=== PATIENT | female | born 1995 ===

== ENCOUNTER 2021-01-05 16:21 | Outpatient (REF) | payer OTHER, SELFPAY ==
--- NOTE | 2021-01-05 14:30 | PAPFT_PTH ---
PATIENT: Lenora Enrique LOC: [facility] U#:[id number] AGE/SX: 25/F ROOM: RE01/05/[address]: Anne-Marie Monroy : 1995 BED: DIS: 01/05/2021 SPEC #: [id number] RECD: 01/06/21 12:48 STATUS: RADHA REPedrito #: [id number] ARIAN: 01/05/21 14:[address]: Anne-Marie Monroy DEPT: [facility] Cytology RECD BY: Sallie Green Tissues: 1 - CX/ENDOCX FOR PAP SMEARS Procedures: PAP THIN PREP/[facility] Screening Comments: [id number] (CHLAMYDIA/GC)
[2021-01-05 22:26] LABS: Calculated LDL 99 mg/dL (<100); Cholesterol 183 mg/dL (<200); HDL Cholesterol 69 mg/dL (40-60); Triglyceride 75 mg/dL (<150)
[2021-01-08 15:23] LABS: Chlamydia Result Negative (Negative); GC Result Negative (Negative)
== END 2021-01-05 16:22 | disposition home or self-care (01) ==
LOC: NCHCN 16:21
PROVIDERS: PCP Family Medicine; Visit Provider Family Medicine
DX: Z00.00 Encounter for general adult medical examination without abnormal findings (principal); N95.1 Menopausal and female climacteric states; E66.9 Obesity, unspecified; Z13.1 Encounter for screening for diabetes mellitus; Z13.220 Encounter for screening for lipoid disorders; Z12.4 Encounter for screening for malignant neoplasm of cervix; Z11.3 Encounter for screening for infections with a predominantly sexual mode of transmission; Z01.419 Encounter for gynecological examination (general) (routine) without abnormal findings
CPT/HCPCS: 80061; 87491; 87591; 88142; 83036; 84443